=== PATIENT | female | born 1965 | race Caucasian/White ===

== ENCOUNTER 2025-03-15 11:43 | Outpatient (CLI) | payer OTHER, SELFPAY | END 2025-03-15 11:44 | disposition home or self-care (01) | LOC: LKVREF 11:44 | PROVIDERS: PCP Emergency Medicine; Visit Provider Emergency Medicine | DX: B35.1 Tinea unguium (principal) | CPT/HCPCS: 80076 ==

== ENCOUNTER 2025-03-28 11:19 | Outpatient (CLI) | payer OTHER, SELFPAY ==
[2025-03-29 21:46] LABS: HPV Source Cervical; HPV, High Risk by TMA Detected
[2025-03-30 09:48] LABS: HPV Genotype 16 by TMA Not Detected; HPV Genotype 18/45 by TMA Not Detected; HPVG Source Cervical
[2025-04-10 14:22] LABS: Pap Test Reviewed by Path Done
== END 2025-03-28 11:20 | disposition home or self-care (01) ==
PROVIDERS: PCP Emergency Medicine; Visit Provider Emergency Medicine
DX: Z00.00 Encounter for general adult medical examination without abnormal findings (principal); Z13.228 Encounter for screening for other metabolic disorders; Z13.6 Encounter for screening for cardiovascular disorders; Z11.51 Encounter for screening for human papillomavirus (HPV); Z12.4 Encounter for screening for malignant neoplasm of cervix
CPT/HCPCS: 80048; 80061; 87624; 87625; 88141; 88142

== ENCOUNTER 2025-06-18 13:54 | Outpatient (CLI) | payer OTHER, SELFPAY | END 2025-06-18 13:55 | disposition home or self-care (01) | LOC: LKVREF 13:55 | PROVIDERS: PCP Emergency Medicine; Visit Provider Family Medicine | DX: B35.1 Tinea unguium (principal) | CPT/HCPCS: 80076 ==

== ENCOUNTER 2025-07-16 06:28 | Outpatient (CLI) | payer OTHER, SELFPAY ==
--- NOTE | 2025-07-16 08:08 | P.ANES_ITS ---
Anesthesia Charges Start Date/Time Anesthesia Start Date: 07/16/25 Anesthesia Start Time: 07:23 Stop Date/Time Anesthesia Stop Date: 07/16/25 Anesthesia Stop Time: 08:02 Coding CPT Codes CPT Codes: YARY LWR INTST NDSC NOS - 04503 ([id number]) P2 - PATIENT W/MILD SYST DISEASE, QK - VIDEO EDITING INTERNSHIP 2-4 CNCRNT ANES PROC
--- NOTE | 2025-07-16 08:08 | W.ANESCHARGE ---
Anesthesia Charges Start Date/Time Anesthesia Start Date: 07/16/25 Anesthesia Start Time: 07:23 Stop Date/Time Anesthesia Stop Date: 07/16/25 Anesthesia Stop Time: 08:02 Coding CPT Codes CPT Codes: YARY LWR INTST NDSC NOS - [id number] ([id number]) P2 - PATIENT W/MILD SYST DISEASE, QK - AQUATIC FACILITY MANAGER 2-4 CNCRNT ANES PROC
--- NOTE | 2025-07-16 09:22 | P.ANES_ITS ---
Anesthesia Charges Start Date/Time Anesthesia Start Date: 07/16/25 Anesthesia Start Time: 07:23 Stop Date/Time Anesthesia Stop Date: 07/16/25 Anesthesia Stop Time: 08:02 Coding CPT Codes CPT Codes: YARY LWR INTST NDSC NOS - [id number] ([id number]) P2 - PATIENT W/MILD SYST DISEASE, QK - COILED TUBING SUPERVISOR 2-4 CNCRNT ANES PROC, QX - BUSINESS PRACTICES SUPERVISOR SVC W/ MD MED DIRECTION
--- NOTE | 2025-07-16 09:22 | W.ANESCHARGE ---
Anesthesia Charges Start Date/Time Anesthesia Start Date: 07/16/25 Anesthesia Start Time: 07:23 Stop Date/Time Anesthesia Stop Date: 07/16/25 Anesthesia Stop Time: 08:02 Coding CPT Codes CPT Codes: YARY LWR INTST NDSC NOS - [id number] ([id number]) P2 - PATIENT W/MILD SYST DISEASE, QK - COUNTER WAITER 2-4 CNCRNT ANES PROC, QX - OPERATIONS ASSISTANT SVC W/ MD MED DIRECTION
== END 2025-07-16 06:29 | disposition home or self-care (01) ==
LOC: OP CLINIC 06:30
PROVIDERS: Visit Provider Surgery
DX: Z12.11 Encounter for screening for malignant neoplasm of colon (principal); K62.1 Rectal polyp; K57.30 Diverticulosis of large intestine without perforation or abscess without bleeding
CPT/HCPCS: 00811; 00812; 45385; 88305; J2405; J2704

== ENCOUNTER 2025-07-30 08:45 | Outpatient (RCR) | payer OTHER, SELFPAY ==
--- NOTE | 2025-07-20 07:55 | PT.OPE ---
PT [place] Outpatient Eval PT [facility] Outpatient Eval Start: 06/22/25 12:52 Freq: Status: Active Protocol: Document 06/22/25 15:13 ENM (Rec: 06/22/25 15:14 ENM [id number]) E-signed By Ivet Longo, DPT Physical Therapy Outpatient Evaluation Insurance Information Insurance Name Other; See Comments Insurance Information/Comments Medical Diagnosis pain in right shoulder Treating Diagnosis right shoulder pain, decreased shoulder ROM, muscle weakness, impaired ADLs Referring MD Lerner Subjective Subjective Patient presents to PT for evaluation of right shoulder pain. Patient states that she is not sure what she did but it is painful. She cannot reach behind the back and out. It is painful with sleeping and often lays on the right side. Seemed to start about a month ago. Pain is always there but worse with getting dressed, washing her hair and other activities. They thought it would go away. Wasn't sure if it started with helping her haul a lot of things at her cabin. It feels tighter on that side. Has tried aleve and ibuprofen which doesn't seem to help. Was prescribed meloxicam which she is starting to use but is not sure if it helps much. When it started: about a month ago or longer Describes it as: Timing: present throughout the day Location: anterior, posterior and lateral shoulder Irritability: mod Severity: mod PMHx: depression, asthma, fall a year ago on her left side, low back pain Pain Comments at its best: 2/10 at its worse: 6-9/10 easing: none aggravating: taking off clothes, washing hair Current Work Status Client Relationship Manager Occupation [employer] Objective Other/Pertinent Shoulder AROM: Objective Shoulder flexion: L 152 R 142 + pain (more painful on way down) Abduction: L 178 R 91 ++ for pain IR: L T3 R mid glute ER: T3 B with pain on R Passive shoulder flexion is less painful, shoulder IR and ER at zero degrees of abduction pain free which does increase as abduction increases Cervical AROM: Flexion: 18 Ext: 46 SB: L 21 R 17 Rot: L 65 R 65 Strength: Shoulder flexion: 4-/5 B with pain on R Shoulder IR0: 4/5 B slight pain on R Shoulder ER0: 4-/5 more painful on R Middle trapezius: 4-/5 with pain on R Palpation/joint mobility: Posterior glide of GHJ: normal mobility B no pain Inferior glide of GHJ: hypomobile on R compared to L + for pain with palpation of biceps, supraspinatus, deltoid Special tests: neers - myers ras + obriens + for pain with IR that decreases with ER Functional Test SPADI: pain 30/50 Performed & Score disability 25/80 Assessment Assessment/ Patient is a 60 year old female presenting with acute 1 Impression month history of right shoulder pain. They report no injury to have caused the pain. They note symptoms with all shoulder mobility which is worse when reaching behind the back, getting her clothes on<>off and washing her hair. Severity of pain is also making it more difficult to sleep on that side at night. Upon assessment patients concordant pains brought on with all shoulder ROM worse into shoulder IR and abduction. PROM is less painful with elevation and IR/ ER at zero degrees of abduction. Shoulder strength is comparable to contralateral side but limited by pain. Special testing negative for nekelly and + for lucia mcginnis. They are tender to palpation along supraspinatus, biceps, deltoid, UT and levator on right side. Patient signs and symptoms are consistent with subacromial pain syndrome. Jaye would greatly benefit from skilled PT to address impairments stated above in order to perform all self care/ADLS and household duties without significant discomfort or difficulty. Primary Functional putting on clothing, doing her hair, washing her hair, Limitations reaching out Plan of Care Rehabilitation Good Potential Rehabilitation fair-good due to severity of pain Potential Comments Physical Therapy In 7-9 visits: Goals 1. Patient will be IND with HEP and self management of symptoms 2. Patient will display pain free shoulder flexion to 140 degs in order to perform household dutiies without significant discomfort or difficulty 3. Patient will be able to don/doff clothing and wash hair without increase in shoulder pain in order to perform self cares/ADLs 4. Patient will improve global right shoulder and scapular strength to at least 4+/5 for return to prior lifting/yoga routine 5. Patient will improve SPADI from 55 to 42 (MDC 13) to demonstrate improvements in QOL 6. Patient will be able to comfortably lay at night for improved sleep hygiene Coordination/ Referral Source Communication With Treatment Plan/ Dry Needling,Electrical Stimulation,Heat,Ice/Cold/ Direct Interventions Vasopneumatic,Joint Mobilization,Manual Therapy, Neuromuscular Re-ed,Self-Care/Home Management, Therapeutic Activities,Therapeutic Exercises Frequency/Duration 1x a week for 7-9 visits Patient Will Be Completion of LTG(s),Independent w/HEP Discharged From Therapy Evaluation Billing Untimed Code 30 Treatment Minutes Complexity Low Certification Information Provider Signature Communication Only-No Signature Required Required
== END 2025-10-15 14:19 | disposition home or self-care (01) ==
PROVIDERS: PCP Emergency Medicine; Visit Provider Family Medicine
DX: M25.511 Pain in right shoulder (principal); Z51.89 Encounter for other specified aftercare
CPT/HCPCS: 97110; 97140; 97161

== ENCOUNTER 2025-10-24 08:49 | Outpatient (CLI) | payer OTHER, SELFPAY ==
--- NOTE | 2025-10-24 09:15 | CRLHL7_ITS ---
For Patients: As a result of the Cures Act, medical imaging exams and procedure reports are released immediately into your electronic medical record. You may view this report before your referring provider. If you have questions, please contact your health care provider. INDICATION: BILATERAL SCREENING MAMMOGRAM, ASYMPTOMATIC 60 Y/O FEMALE COMPARISON: NONE AVAILABLE TECHNIQUE: Digital mammogram in CC and MLO projections including computer-aided detection (CAD) and tomosynthesis. BREAST COMPOSITION: The breasts are heterogeneously dense, which may obscure small masses. FINDINGS: No suspicious findings. ASSESSMENT: BI-RADS 1 Negative RECOMMENDATION: Annual screening mammogram. A lay language report of this examination will be provided to the patient. Dictated by: Brent Arguelles MD @ 11/12/2025 08:51:31 (Electronically Signed)
== END 2025-10-24 08:50 | disposition home or self-care (01) ==
LOC: MAMMO 08:50
PROVIDERS: Visit Provider Family Medicine
DX: Z12.31 Encounter for screening mammogram for malignant neoplasm of breast (principal); R92.333 Mammographic heterogeneous density, bilateral breasts
CPT/HCPCS: 77063; 77067